=== PATIENT | male | born 1950 | race Caucasian/White ===

== ENCOUNTER → 2019-09-25 | Outpatient (CLI) | payer MEDICARE | END | disposition home or self-care (01) | LOC: RAD 15:06 | PROVIDERS: ATTEND Registered Nurse | DX: R05 Cough (principal) | CPT/HCPCS: 71046 ==

== ENCOUNTER → 2019-10-27 | Outpatient (CLI) | payer MEDICARE | END | disposition home or self-care (01) | LOC: CFH 07:29 | PROVIDERS: ATTEND Registered Nurse | DX: J47.9 Bronchiectasis, uncomplicated (principal); I70.0 Atherosclerosis of aorta; I11.9 Hypertensive heart disease without heart failure; K80.20 Calculus of gallbladder without cholecystitis without obstruction; J98.4 Other disorders of lung; R91.1 Solitary pulmonary nodule; Z95.1 Presence of aortocoronary bypass graft | CPT/HCPCS: 71250; 93306 ==